=== PATIENT | female | born 1945 | race Two or more races ===

== ENCOUNTER 2017-06-16 08:32 | Outpatient (CLI) | payer OTHER | END 2017-06-16 08:40 | disposition home or self-care (01) | LOC: TOM 08:32 | DX: K56.50 Intestinal adhesions [bands], unspecified as to partial versus complete obstruction (principal); K56.699 Other intestinal obstruction unspecified as to partial versus complete obstruction ==

== ENCOUNTER 2017-10-20 09:00 | Inpatient (IN) | payer OTHER ==
[~2017-10-20] VITALS: Ht 160 cm; Wt 84.4 kg
[2017-10-31] MEDS ORDERED: HYOSCYAMINE0.125 M1 SL (11:40)
[2017-10-31] MEDS ORDERED: OXYC1TAB9 PO (11:41)
[2017-10-31] MEDS ORDERED: INTESTINEX680 M1 PO (11:42)
== END 2017-10-31 13:03 | disposition home or self-care (01) | DRG 330 ==
LOC: SURG 10-27 05:50 → O/R 10-27 05:50 → SURH 10-27 07:00 → SURG 10-27 12:16
PROVIDERS: Surgery
PROC: 0DJD8ZZ Inspection of Lower Intestinal Tract, Via Natural or Artificial Opening Endoscopic (ICD-10-PCS; 2017-10-27)
PROC: 0DTN4ZZ Resection of Sigmoid Colon, Percutaneous Endoscopic Approach (ICD-10-PCS; principal; 2017-10-27 07:00)
PROC: 3E0F7GC Introduction of Other Therapeutic Substance into Respiratory Tract, Via Natural or Artificial Opening (ICD-10-PCS; 2017-10-29)
DX: K57.20 Diverticulitis of large intestine with perforation and abscess without bleeding (principal); J95.89 Other postprocedural complications and disorders of respiratory system, not elsewhere classified; R09.02 Hypoxemia; G47.33 Obstructive sleep apnea (adult) (pediatric); I13.10 Hypertensive heart and chronic kidney disease without heart failure, with stage 1 through stage 4 chronic kidney disease, or unspecified chronic kidney disease; N18.2 Chronic kidney disease, stage 2 (mild); G43.809 Other migraine, not intractable, without status migrainosus

== ENCOUNTER 2018-12-06 08:16 | Day surgery (SDC) | payer OTHER ==
[~2018-12-06 08:16] MED LIST: HYOSCYAMINE0.125 M1 SL; INTESTINEX680 M1 PO; OXYC1TAB9 PO
== END 2018-12-06 09:30 | disposition home or self-care (01) ==
LOC: AMB-ENDOS 08:16
DX: K57.32 Diverticulitis of large intestine without perforation or abscess without bleeding (principal)